=== PATIENT | female | born 1985 | race Caucasian/White ===

== ENCOUNTER 2023-02-13 21:27 | Emergency (ER) | payer MEDICAID ==
[~2023-02-13] VITALS: Ht 160 cm; Wt 72.6 kg
[2023-02-13 21:40] VITALS: BP 136/78; PULSE 98; RESP 16; TEMP 98; O2SAT 99
== END 2023-02-14 00:37 | disposition home or self-care (01) ==
LOC: MED 21:27
DX: R11.2 Nausea with vomiting, unspecified (principal); R05.9 Cough, unspecified; R10.9 Unspecified abdominal pain; M79.18 Myalgia, other site; R19.7 Diarrhea, unspecified; R09.81 Nasal congestion; R50.9 Fever, unspecified; R53.1 Weakness; Z53.21 Procedure and treatment not carried out due to patient leaving prior to being seen by health care provider
CPT/HCPCS: 99281